=== PATIENT | male | born 1965 | race Caucasian/White ===

== ENCOUNTER 2019-11-21 12:37 | Outpatient (CLI) | payer BC, SELFPAY | END 2019-11-21 12:38 | disposition home or self-care (01) | LOC: CHSCARD 12:42 | PROVIDERS: PCP Internal Medicine; Visit Provider Internal Medicine Pulmonary Disease | DX: J44.9 Chronic obstructive pulmonary disease, unspecified (principal) | CPT/HCPCS: 94060; 94726; 94729; 95012 ==

== ENCOUNTER 2019-12-23 08:34 | Outpatient (CLI) | payer BC, SELFPAY ==
[2019-12-23 08:59] LABS: Add Urine Microscopic? NO; Appearance Urine Clear (Clear); Bilirubin Urine Negative (Negative); Blood Urine Negative (Negative); Color Urine Yellow (Yellow); Glucose Urine UA Negative (Negative); Ketones Urine Negative (Negative); Leukocyte Esterase Ur Negative LEU/UL (Negative); Nitrate Urine Negative (Negative); Protein Urine Negative (Negative); Specific Grav Ur 1.025 (1.010-1.020); Urobilinogen Urine 0.2 mg/dL (0.2-1.0); pH Urine 5.5 (5.0-8.0)
[2019-12-23 09:04] LABS: Hemoglobin A1C 5.7 % (<5.7)
[2019-12-23 09:22] LABS: Creatinine Urine 123.44 mg/dL (40-278)
[2019-12-23 09:30] LABS: Microalbumin Urine Random 12.4 mg/L
[2019-12-23 09:52] LABS: Alanine Aminotransferase 24 U/L (16-63); Albumin Level 3.8 g/dL (3.4-5.0); Alkaline Phosphatase 81 U/L (46-116); Anion Gap 10.6 mmol/L (7-16); Aspartate Amino Transferase 20 U/L (15-37); Bilirubin,Total 0.8 mg/dL (0.00-1.00); Blood Urea Nitrogen 21 mg/dL (7-18); Calcium 9.3 mg/dL (8.5-10.1); Carbon Dioxide 28 mmol/L (21-32); Chloride 105 mmol/L (98-108); Cholesterol 136 mg/dL (0-200); Creatine Kinase 95 U/L (39-308); Estimated Glomerular Filt Rate > 60; Glucose 88 mg/dL (70-99); HDL Direct 65 mg/dL (40-60); LDL Cholesterol Calculated 59 mg/dL (<130); Osmolality Calculated 290 mOsm/kg (285-295); Potassium 4.6 mmol/L (3.5-5.1); Sodium 139 mmol/L (136-145); Total Protein 7.4 g/dL (6.4-8.2); Triglycerides 59 mg/dL (0-150)
== END 2019-12-23 08:35 | disposition home or self-care (01) ==
LOC: CHSLAB 08:37
PROVIDERS: PCP Internal Medicine; Visit Provider Internal Medicine
DX: R73.01 Impaired fasting glucose (principal); I10 Essential (primary) hypertension
CPT/HCPCS: 36415; 80053; 80061; 81003; 82043; 82550; 83036

== ENCOUNTER 2020-01-09 07:09 | Outpatient (CLI) | payer BC, SELFPAY ==
--- NOTE | ~2020-01-09 | CT_ITS ---
EXAMINATION: CT abdomen pelvis w con INDICATION: Right-sided abdominal pain, change in bowel habits TECHNIQUE: Computed tomographic images of the abdomen and pelvis were obtained after the administrati on of 100 cc of Omnipaque 350 intravenous contrast. The dose-length product (DLP) was 1439.51 mGy-cm. Automated exposure control and iterative reconstruction technique were employed. COMPARISON: 11/17/2017 the liver, spleen, pancreas, and adrenal glands are normal. FINDINGS: There is mild emphysema of the visualized lung bases. A 4 mm nodule is present in the left lower lobe. The heart size is normal. There are changes of gastric sleeve surgery. There are multiple stones in the gallbladder which appears mildly distended. There also appears to be a 2 mm stone in t he distal common bile duct. No definite intrahepatic or extrahepatic biliary dilatation is seen. Ther e is a 1.6 cm hyperdense mass of the left kidney upper pole. There is a 10 mm hyperdense mass of the right kidney upper pole. No pathologically enlarged abdominal or pelvic lymph nodes are identified. T here is no free intraperitoneal gas or evidence of bowel obstruction. The appendix is normal. Colonic diverticulosis is present without evidence of diverticulitis. There is severe lower lumbar spondylos is. IMPRESSION: 1. Cholelithiasis with mild gallbladder distention and possible stone of the distal common bile duct. Although no biliary dilatation is seen, MRCP could be considered. If there are symptoms referable to the right upper quadrant, consider nuclear hepatobiliary scan to evaluate for acute cholecystitis. 2. Indeterminate lesions of the kidneys. Findings could represent hemorrhagic or proteinaceous cysts. These can be simultaneously evaluated by sequences performed for MRCP. The above findings were discu ssed with Dr. Tre Reinoso MD on 01/09/2020 09:37 CDT. 3. Mild emphysema of the visualized lung bases with a 4 mm nodule of the left lower lobe. Consider fo llow-up CT in 12 months. Reviewed, dictated and finalized at location B. IMPRESSION: 1. Cholelithiasis with mild gallbladder distention and possible stone of the di stal common bile duct. Although no biliary dilatation is seen, MRCP could be co nsidered. If there are symptoms referable to the right upper quadrant, consider nuclear hepatobiliary scan to evaluate for acute cholecystitis. 2. Indeterminate lesions of the kidneys. Findings could represent hemorrhagic o r proteinaceous cysts. These can be simultaneously evaluated by sequences perfo rmed for MRCP. The above findings were discussed with Dr. Tre Reinoso MD on 01/09/2020 09:37 CDT. 3. Mild emphysema of the visualized lung bases with a 4 mm nodule of the left l ower lobe. Consider follow-up CT in 12 months.
== END 2020-01-09 07:10 | disposition home or self-care (01) ==
PROVIDERS: PCP Internal Medicine; Visit Provider Internal Medicine
DX: R19.4 Change in bowel habit (principal); R10.9 Unspecified abdominal pain
CPT/HCPCS: 74177; Q9965

== ENCOUNTER 2020-01-24 06:38 | Outpatient (CLI) | payer BC, SELFPAY ==
--- NOTE | ~2020-01-24 | MR_ITS ---
EXAMINATION: MR MRCP wo/w con/w 3D wo ind DATE: 01/24/2020 08:04 INDICATION: Disease of the gallbladder. Kidney mass. TECHNIQUE: Magnetic resonance imaging (MRI) of the abdomen was performed without and with 20 mL Multi Migue intravenous contrast. Sequences included coronal T2-weighted FS FSE, coronal T2-weighted FSE, a xial T1-weighted LAVA, coronal FS FIESTA, axial dual-echo T1-weighted SPGR, coronal lava-FLEX, sagitt al T2-weighted FSE, axial T2-weighted FSE, and axial DWI. Thick-slab T2-weighted FSE images were obta ined for magnetic resonance cholangiopancreatography (MRCP). Maximum intensity projection 3-D reconst ructions of the volumetric data were created by the technologist. Postcontrast sequences included cor onal LAVA-flex and time course of axial T1-weighted LAVA. COMPARISON: CT abdomen and pelvis 01/09/2020 FINDINGS: ABDOMEN MRI: The liver and spleen are normal. There are gallstones in the gallbladder, which is trevor l in size. The pancreas and adrenal glands are normal. There are cysts in the kidneys measuring up to 1.8 cm on the right. There is a 10 mm hemorrhagic cyst in right kidney. There is a 1.6 cm enhancing mass in left kidney upper pole directed posterolaterally. There are no dilated loops of bowel. There are no pathologically enlarged lymph nodes. There is no free intraperitoneal fluid. ABDOMEN MRCP: The common duct is normal and measures 6 mm. No choledocholithiasis. IMPRESSION: 1. 1.6 cm enhancing left kidney mass, consistent with renal cell carcinoma. 2. Cholelithiasis. Reviewed, dictated and finalized at location A.
[2020-01-24 07:05] LABS: Estimated Glomerular Filt Rate 58
== END 2020-01-24 06:39 | disposition home or self-care (01) ==
PROVIDERS: PCP Internal Medicine; Visit Provider Internal Medicine
DX: K82.9 Disease of gallbladder, unspecified (principal); K80.20 Calculus of gallbladder without cholecystitis without obstruction
CPT/HCPCS: 36415; 74183; 76376; A9577

== ENCOUNTER 2020-03-19 08:15 | Outpatient (CLI) | payer BC, SELFPAY ==
--- NOTE | 2020-03-19 09:00 | EST_ITS ---
Patient Info Name: Huber Rollins Age: 54 years : 1965 Gender: Male Ht: 76 in Wt: 276 lbs BSA: 2.62 m2 HR: 61 bpm BP: 140 / 75 mmHg Technical Quality: Good Exam Date: 03/19/2020 8:38 AM Exam Location: [facility] Patient Status: Outpatient Admit Date: 03/19/2020 Staff Ordering Physician: Tre Reinoso MD Attending Provider: Tre Reinoso MD Exercise Technologist: Ana Rubin CRT Exercise Physician: Lupe Lee CEP Exam Type: CA stress test treadmill Study Info Indications AbnormalEKG - ChestPain - An exercise stress test was performed. History/Risk Factors Hypertension: Yes Tobacco Use: Current - Every Day History/Risk Factors Hypertension. Smoker. Summary 1. 1. Negative Yoshi exercise stress test for ischemic ST changes by ECG criteria. 2. 2. Good functional capacity, achieving 9 METs of workload. 3. 3. Hypertensive response to exercise. 4. 4. Appropriate HR response to exercise. 5. 5. Appropriate HR recovery at 1 minute post exercise. 6. 6. No imaging with stress testing. Protocol: Yoshi Stress ECG Details Stage: REST Duration (min): 1 min : 43 sec Speed (mph): 0.0 Grade (%): 0 HR (bpm): 61 SBP (mmHg): 140 DBP (mmHg): 75 METS: --- Stage: REST Duration (min): 11 min : 14 sec Speed (mph): 0.0 Grade (%): 0 HR (bpm): 72 SBP (mmHg): 140 DBP (mmHg): 75 METS: --- Stage: STAGE 1 Duration (min): 1 min : 0 sec Speed (mph): 1.7 Grade (%): 10 HR (bpm): 93 SBP (mmHg): 140 DBP (mmHg): 75 METS: --- Stage: STAGE 1 Duration (min): 2 min : 0 sec Speed (mph): 1.7 Grade (%): 10 HR (bpm): 106 SBP (mmHg): 140 DBP (mmHg): 75 METS: --- Stage: STAGE 1 Duration (min): 3 min : 0 sec Speed (mph): 1.7 Grade (%): 10 HR (bpm): 106 SBP (mmHg): 186 DBP (mmHg): 59 METS: --- Stage: STAGE 2 Duration (min): 1 min : 0 sec Speed (mph): 2.5 Grade (%): 12 HR (bpm): 123 SBP (mmHg): 186 DBP (mmHg): 59 METS: --- Stage: STAGE 2 Duration (min): 2 min : 0 sec Speed (mph): 2.5 Grade (%): 12 HR (bpm): 130 SBP (mmHg): 186 DBP (mmHg): 59 METS: --- Stage: STAGE 2 Duration (min): 3 min : 0 sec Speed (mph): 2.5 Grade (%): 12 HR (bpm): 136 SBP (mmHg): 210 DBP (mmHg): 72 METS: --- Stage: STAGE 3 Duration (min): 1 min : 0 sec Speed (mph): 3.4 Grade (%): 14 HR (bpm): 147 SBP (mmHg): 210 DBP (mmHg): 72 METS: --- Stage: STAGE 3 Duration (min): 2 min : 0 sec Speed (mph): 3.4 Grade (%): 14 HR (bpm): 151 SBP (mmHg): 210 DBP (mmHg): 72 METS: --- Stage: STAGE 3 Duration (min): 2 min : 0 sec Speed (mph): 3.4 Grade (%): 14 HR (bpm): 151 SBP (mmHg): 210 DBP (mmHg): 72 METS: --- Stage: RECOVERY Duration (min): 0 min : 59 sec Speed (m
== END 2020-03-19 08:16 | disposition home or self-care (01) ==
LOC: CHSCARD 08:17
PROVIDERS: PCP Internal Medicine; Visit Provider Internal Medicine
DX: R07.9 Chest pain, unspecified (principal)
CPT/HCPCS: 93017

== ENCOUNTER 2020-05-26 01:02 | Outpatient (CLI) | payer BC, SELFPAY ==
[2020-05-26 18:11] LABS: SARS-CoV-2 RNA PCR Negative
== END 2020-05-26 01:03 | disposition home or self-care (01) ==
LOC: ANHCOVIDDT 01:02
PROVIDERS: PCP Internal Medicine; Visit Provider Surgery
DX: Z01.812 Encounter for preprocedural laboratory examination (principal); Z11.59 Encounter for screening for other viral diseases
CPT/HCPCS: 87635; C9803; U0003

== ENCOUNTER 2020-05-29 01:54 | Day surgery (SDC) | payer BC, SELFPAY ==
[2020-05-23 13:40] VITALS: BMI 31.1
[2020-05-29 09:47] VITALS: BP 120/66; PULSE 52; RESP 16; TEMP 36.4; O2SAT 99
[2020-05-29] MEDS: LACTATED RINGERS 1,000 ML 150 ML IV CONT (10:02)
--- NOTE | 2020-05-29 10:18 | WPDANESEPPF ---
Anes - Initial Pre Proc Eval Procedure: Operation Date: 05/29/20 12:00 Proposed Procedures p Colonoscopy - Kiet Soni DO Date/Time: 05/29/20 10:18 Surgeon: Kiet Soni DO Pre Op Diagnosis: Change In Bowel Habits Patient Data Age: 55 Gender: M Height: 6 ft 4 in Weight: 116 kg Last Vital Signs Temp 97.5 F L 05/29/20 09:47 Pulse 52 L 05/29/20 09:47 Resp 16 05/29/20 09:47 BP 120/66 05/29/20 09:47 Pulse Ox 99 05/29/20 09:47 Allergies Allergy/AdvReac Type Severity Reaction Status Date / Time No Known Allergies Allergy Verified 05/23/20 13:22 Home Medications Medication Instructions Recorded Confirmed Type acetaminophen 500 mg PO Q4-6H PRN 05/23/20 05/23/20 History budesonide-formoterol [Symbicort] 2 puff INHALATION Q12H 05/23/20 05/23/20 History hydrochlorothiazide 12.5 mg PO DAILY 05/23/20 05/23/20 History ipratropium-albuterol [Combivent 1 puff INHALATION QID 05/23/20 05/23/20 History Respimat] losartan 100 mg PO DAILY 05/23/20 05/29/20 History sildenafil PO DIRECTED PRN 05/23/20 History spironolactone 50 mg PO DAILY 05/23/20 05/23/20 History tamsulosin 0.4 mg PO DAILY 05/23/20 05/23/20 History varenicline [Chantix] 1 mg PO BID 05/23/20 05/23/20 History Patient hx anesthesia problems: none Family hx anesthesia problems: none [facility] Past Medical History Medical History (Updated 05/29/20 @ 10:18 by Rene Christianson MD) Bradycardia COPD (chronic obstructive pulmonary disease) Hypertension Social History Social History (Updated 05/29/20 @ 10:19 by Rene Christianson MD) Smoking packs per day: 1 Smoking cigarettes per day: 20.0 Years smoked: 30 Smoking pack-years: 30.00 Smoking status: Current every day smoker Tobacco type: cigarettes Anes - Eval Final PreProcedure Day of Procedure 05/29/20 10:18 Patient weight: normal Heart: regular rate and rhythm Lungs: clear to auscultation Airway: Mallampati scale class II Neurological: alert and oriented Last oral intake: >/= 8 hours ASA classification: III Emergent: no Anesthetic plan: proceed Anesthesia type and monitoring: general GIVS and standard monitoring Informed Consent: The patient's anesthetic plan and its attendant risks and benefits were discussed with the patient/family/POA. Questions were solicited and answers provided to the satisfaction of the patient/family/POA.
--- NOTE | 2020-05-29 10:20 | PM.IMHP ---
H&P: HPI History of Present Illness Date/Time: 05/29/20 10:20 Chief complaint: Change In Bowel Habits Narrative: Huber Rollins is a 55 year old male who presents for 1st colonosocpy. Denies fam hx colon cancer. No hematochezia or melena. Review of Systems Review of Systems: All systems reviewed & are unremarkable except as noted in HPI and below Constitutional: Constitutional: Denies chills, Denies fever(s), Denies headache(s) and Denies weight loss Eyes: Eyes: Denies change in vision ENT: Denies dizziness, Denies headache(s), Denies neck mass and Denies throat swelling Cardiovascular: Cardiovascular: Denies chest pain, Denies lightheadedness and Denies dyspnea Respiratory: Respiratory: Denies cough, Denies dyspnea and Denies wheezing Gastrointestinal: Gastrointestinal: Denies abdominal pain, Denies change in bowel habits, Denies nausea and Denies vomiting Genitourinary: Genitourinary: Denies hematuria and Denies dysuria Musculoskeletal: Musculoskeletal: Reports as per HPI Integumentary/Breasts: Skin/Breast: Reports as per HPI Neurologic: Denies dizziness and Denies headache(s) Allergic/Immunologic: Allergic/Immunologic: Denies throat swelling and Denies wheezing PMFSH Past Medical History Medical History Bradycardia COPD (chronic obstructive pulmonary disease) Hypertension Social History Social History Smoking packs per day: 1 Smoking cigarettes per day: 20.0 Years smoked: 30 Smoking pack-years: 30.00 Smoking status: Current every day smoker Tobacco type: cigarettes Meds Home Medications and Allergies Home Medications Medication Instructions Recorded Confirmed Type acetaminophen 500 mg PO Q4-6H PRN 05/23/20 05/23/20 History budesonide-formoterol [Symbicort] 2 puff INHALATION Q12H 05/23/20 05/23/20 History hydrochlorothiazide 12.5 mg PO DAILY 05/23/20 05/23/20 History ipratropium-albuterol [Combivent 1 puff INHALATION QID 05/23/20 05/23/20 History Respimat] losartan 100 mg PO DAILY 05/23/20 05/29/20 History sildenafil PO DIRECTED PRN 05/23/20 History spironolactone 50 mg PO DAILY 05/23/20 05/23/20 History tamsulosin 0.4 mg PO DAILY 05/23/20 05/23/20 History varenicline [Chantix] 1 mg PO BID 05/23/20 05/23/20 History Allergies Allergy/AdvReac Type Severity Reaction Status Date / Time No Known Allergies Allergy Verified 05/23/20 13:22 Vital Signs Vital Signs - 24 hr 05/29/20 09:47 Temperature 36.4 C L Pulse Rate 52 L Respiratory Rate 16 Blood Pressure 120/66 Pulse Oximetry 99 Exam Const: General: no acute distress and alert Orientation/consciousness: patient oriented x3 HENMT: Head: normocephalic and atraumatic Ears: hearing grossly normal bilaterally General nose exam: Normal nares present Mouth: Yes Normal oral and palatal mucosa present Eyes: Periorbital: periorbital findings normal Sclera: sclerae normal EOM: EOMs intact bilaterally Neck: Neck: normal visual inspection, no lymphadenopathy and trachea midline Chest: Chest palpation & inspection: normal inspection of the chest Resp: Effort & Inspection: normal respiratory effort Auscultation: clear to auscultation bilaterally Cardio: Jugular venous distension: no JVD Rate: regular rate Rhythm: regular rhythm Heart sounds: S1 normal heart sound present and S2 normal heart sound present Peripheral pulses: Peripheral pulses 2+ throughout GI: Inspection: normal to inspection GI Palp: Yes Soft to palpation, No Tenderness to palpation present (GI), No Guarding due to palpation present (GI) and No Rebound tenderness present Percussion: Yes normal to percussion Auscultation: normal bowel sounds : General: Yes no CVA tenderness Back/Spine/Pelvis: Back: no CVA tenderness Neuro: General: patient oriented x3, no focal motor deficits and CN's II-XI intact bilaterally Cognition (Ne
[2020-05-29 10:43] VITALS: BP 98/56; PULSE 49; RESP 18; O2SAT 98
[2020-05-29 10:53] VITALS: BP 98/53; PULSE 50; RESP 19; O2SAT 99
[2020-05-29 11:03] VITALS: BP 109/66; PULSE 53; RESP 18; O2SAT 100
[2020-05-29 11:13] VITALS: BP 110/68; PULSE 52; RESP 20; O2SAT 99
== END 2020-05-29 11:20 | disposition home or self-care (01) ==
PROVIDERS: PCP Internal Medicine; Visit Provider Surgery
PROC: 0DJD8ZZ Inspection of Lower Intestinal Tract, Via Natural or Artificial Opening Endoscopic (ICD-10-PCS; CPT 45378; principal; 2020-05-29 12:00)
DX: Z12.11 Encounter for screening for malignant neoplasm of colon (principal); K63.5 Polyp of colon; I10 Essential (primary) hypertension; J44.9 Chronic obstructive pulmonary disease, unspecified; R00.1 Bradycardia, unspecified; F17.210 Nicotine dependence, cigarettes, uncomplicated
CPT/HCPCS: 45380; 88305; J2704; J7120

== ENCOUNTER 2020-06-20 13:25 | Outpatient (CLI) | payer BC, SELFPAY | END 2020-06-20 13:26 | disposition home or self-care (01) | LOC: CHSCARD 13:26 | PROVIDERS: PCP Internal Medicine; Visit Provider Internal Medicine Pulmonary Disease | DX: J44.9 Chronic obstructive pulmonary disease, unspecified (principal) | CPT/HCPCS: 94060; 94726; 94729 ==

== ENCOUNTER 2020-07-14 08:07 | Outpatient (CLI) | payer BC, SELFPAY ==
[2020-07-14 08:21] LABS: Basophils Absolute Auto 0.04 K/mm3 (0.00-0.10); Basophils Percent Auto 0.4 % (0.0-1.0); Eosinophils Absolute Auto 0.08 K/mm3 (0.02-0.50); Eosinophils Percent Auto 0.9 % (1.0-6.0); Hematocrit 43.2 % (40.0-54.0); Hemoglobin 14.7 g/dL (14.0-18.0); Immature Granulocyte Absolute 0.04 K/mm3 (0.00-0.00); Immature Granulocyte Percent A 0.4 % (0.0-0.0); Lymphocytes Absolute Auto 2.47 K/mm3 (1.10-4.50); Lymphocytes Percent Auto 26.4 % (18.0-42.0); Mean Corpuscular Volume 91.1 fL (78.0-102.0); Mean Platelet Volume 9.2 fl (8.7-11.0); Monocytes Absolute Auto 0.74 K/mm3 (0.10-0.90); Monocytes Percent Auto 7.9 % (2.0-11.0); Platelet Count Result 256 K/mm3 (150-420); Red Blood Count 4.74 M/mm3 (4.70-6.10); Red Cell Distribution Width 13.2 % (11.6-14.4); White Blood Count 9.4 K/mm3 (4.8-10.8)
[2020-07-14 08:59] LABS: MALB Creatinine Ratio 10.1 mg/g (0-30); Microalbumin Urine Random < 13.0 mg/L
[2020-07-14 09:47] LABS: Add Urine Microscopic? NO; Appearance Urine Clear (Clear); Bilirubin Urine Negative (Negative); Blood Urine Negative (Negative); Color Urine Yellow (Yellow); Glucose Urine UA Negative (Negative); Ketones Urine Negative (Negative); Leukocyte Esterase Ur Negative LEU/UL (Negative); Nitrate Urine Negative (Negative); Protein Urine Negative (Negative); Specific Grav Ur 1.025 (1.010-1.020); Urobilinogen Urine 0.2 mg/dL (0.2-1.0)
[2020-07-14 10:03] LABS: Hemoglobin A1C 5.3 % (<5.7)
[2020-07-14 10:29] LABS: Alanine Aminotransferase 26 U/L (16-63); Alkaline Phosphatase 80 U/L (46-116); Anion Gap 12 mmol/L (8-16); Aspartate Amino Transferase 19 U/L (15-37); Bilirubin,Total 0.7 mg/dL (0.00-1.00); Blood Urea Nitrogen 28 mg/dL (7-18); Calcium 9.5 mg/dL (8.5-10.1); Carbon Dioxide 25 mmol/L (21-32); Chloride 103 mmol/L (98-108); Cholesterol 137 mg/dL (0-200); Estimated Glomerular Filt Rate > 60; Glucose 100 mg/dL (70-99); HDL Direct 63 mg/dL (40-60); LDL Cholesterol Calculated 60 mg/dL (<130); Osmolality Calculated 295 mOsm/kg (285-295); Sodium 140 mmol/L (136-145); Total Protein 7.3 g/dL (6.4-8.2); Triglycerides 69 mg/dL (0-150)
== END 2020-07-14 08:08 | disposition home or self-care (01) ==
LOC: CHSLAB 08:09
PROVIDERS: PCP Internal Medicine; Visit Provider Internal Medicine
DX: R73.01 Impaired fasting glucose (principal); I10 Essential (primary) hypertension
CPT/HCPCS: 36415; 80053; 80061; 81003; 82043; 83036; 85025

== ENCOUNTER 2020-11-14 17:30 | Outpatient (CLI) | payer BC, SELFPAY ==
--- NOTE | ~2020-11-14 | XR_ITS ---
XR chest 2V DATE: 11/14/2020 18:12 INDICATION: Midsternal chest pain, shortness of breath TECHNIQUE: PA and lateral views COMPARISON: 11/12/2017 PA and lateral chest FINDINGS: Normal heart size. No hilar or mediastinal enlargement. Bilateral hyperinflation. No pul monary infiltrate or consolidation, pulmonary vascular congestion or pleural effusion or pneumothorax . Mild dextroscoliosis and degenerative change of the thoracic spine. IMPRESSION: No active cardiopulmonary disease Reviewed, dictated and finalized at location A. S DISASSEMBLER
[2020-11-14 18:05] LABS: Basophils Absolute Auto 0.03 K/mm3 (0.00-0.10); Basophils Percent Auto 0.3 % (0.0-1.0); Eosinophils Absolute Auto 0.13 K/mm3 (0.02-0.50); Eosinophils Percent Auto 1.3 % (1.0-6.0); Hematocrit 46.2 % (40.0-54.0); Hemoglobin 15.1 g/dL (14.0-18.0); Immature Granulocyte Absolute 0.03 K/mm3 (0.00-0.00); Immature Granulocyte Percent A 0.3 % (0.0-0.0); Lymphocytes Absolute Auto 2.07 K/mm3 (1.10-4.50); Lymphocytes Percent Auto 21.4 % (18.0-42.0); Mean Corpuscular HGB Conc 32.7 g/dL (32.0-36.0); Mean Corpuscular Hemoglobin 30.6 pg (27.0-31.0); Mean Corpuscular Volume 93.5 fL (78.0-102.0); Mean Platelet Volume 8.9 fl (8.7-11.0); Monocytes Absolute Auto 0.71 K/mm3 (0.10-0.90); Monocytes Percent Auto 7.3 % (2.0-11.0); Neutrophils Absolute Auto 6.7 K/mm3 (1.7-7.2); Neutrophils Percent Auto 69.4 % (50.0-70.0); Platelet Count Result 285 K/mm3 (150-420); Red Blood Count 4.94 M/mm3 (4.70-6.10); White Blood Count 9.7 K/mm3 (4.8-10.8)
--- NOTE | 2020-11-14 18:05 | ECG_ITS ---
Measurements Intervals [place] Rate: 60 P: 63 MD: 175 QRS: 76 QRSD: 108 T: 73 QT: 371 QTc: 372 Interpretive Statements SINUS RHYTHM DELAYED PRECORDIAL R/S TRANSITION PEAKED T WAVES- CONSIDER HYPERKALEMIA OR ISCHEMIA ABNORMAL ECG Electronically Signed On 11-14-2020 18:25:26 DRY HOUSE TENDER by Bal Dean D.O.
[2020-11-14 18:22] LABS: D Dimer 0.22 mg/L (0.19-0.50)
[2020-11-14 18:32] LABS: Alanine Aminotransferase 27 U/L (16-63); Alkaline Phosphatase 77 U/L (46-116); Anion Gap 5 mmol/L (8-16); Aspartate Amino Transferase 22 U/L (15-37); Bilirubin,Total 0.4 mg/dL (0.00-1.00); Blood Urea Nitrogen 33 mg/dL (7-18); Calcium 9.4 mg/dL (8.5-10.1); Carbon Dioxide 30 mmol/L (21-32); Chloride 99 mmol/L (98-108); Creatine Kinase 211 U/L (39-308); Estimated Glomerular Filt Rate 51; Glucose 100 mg/dL (70-99); Osmolality Calculated 285 mOsm/kg (285-295); Potassium 4.7 mmol/L (3.5-5.1); Sodium 134 mmol/L (136-145); Total Protein 7.9 g/dL (6.4-8.2); Troponin I 8.6 ng/L (0.00-60.4)
[2020-11-14 18:37] LABS: SARS-CoV-2 Ag Negative (Negative)
[2020-11-14 18:42] LABS: BNP < 5.0 pg/mL (0-100)
[2020-11-16 19:17] LABS: SARS-CoV-2 RNA PCR Negative
== END 2020-11-14 17:31 | disposition home or self-care (01) ==
LOC: CHSLAB 17:32
PROVIDERS: PCP Internal Medicine; Visit Provider Internal Medicine
DX: R06.00 Dyspnea, unspecified (principal); R07.89 Other chest pain; Z20.822 Contact with and (suspected) exposure to COVID-19
CPT/HCPCS: 36415; 71046; 80053; 82550; 82553; 83880; 84484; 85025; 85380; 87426; 93005; C9803; U0003; U0005

== ENCOUNTER 2020-11-29 08:09 | Outpatient (CLI) | payer BC, SELFPAY ==
--- NOTE | 2020-12-19 12:15 | WPDHOLTEREM ---
Holter/Event Monitor Holter/Event Monitor Date of procedure: 11/29/20 Procedure Type: event monitor Indications: Palpitations Conclusion: 1. 16 days event monitor between 11/29/20-12/19/20. There are 26 available transmissions for analysis. 2. Underlying rhythm is sinus rhythm. HR range 50-155 bpm; average HR 72 bpm. 3. There are occasional premature supraventricular complexes with total burden of 1%. No supraventricular tachycardia. 4. There are occasionall premature ventricular complexes with total burden of 1%. No ventricular tachycardia. 5. No significant pauses greater than 2 seconds. 6. Patient reports 8 episodes of symptoms of chest pain, shortness of breath, dizziness, lightheadedness, and symptoms other than listed which demonstrate sinus rhythm, HR range 59-150 bpm.
== END 2020-11-29 08:10 | disposition home or self-care (01) ==
LOC: CHSCARD 08:12
PROVIDERS: PCP Internal Medicine; Visit Provider Internal Medicine
DX: R00.2 Palpitations (principal)
CPT/HCPCS: 99199

== ENCOUNTER 2021-08-03 09:35 | Outpatient (CLI) | payer BC, SELFPAY ==
[2021-08-03 11:51] LABS: Anion Gap 8 mmol/L (8-16); Blood Urea Nitrogen 28 mg/dL (7-18); Calcium 9.4 mg/dL (8.5-10.1); Carbon Dioxide 29 mmol/L (21-32); Chloride 102 mmol/L (98-108); Estimated Glomerular Filt Rate 54; Glucose 92 mg/dL (70-99); Osmolality Calculated 293 mOsm/kg (285-295); Potassium 4.7 mmol/L (3.5-5.1); Sodium 139 mmol/L (136-145)
== END 2021-08-03 09:36 | disposition home or self-care (01) ==
LOC: CHSLAB 09:39
PROVIDERS: PCP Internal Medicine; Visit Provider Internal Medicine
DX: E86.0 Dehydration (principal)
CPT/HCPCS: 36415; 80048

== ENCOUNTER 2021-10-03 16:41 | Outpatient (CLI) | payer BC, SELFPAY ==
[2021-10-03 17:30] LABS: Basophils Absolute Auto 0.04 K/mm3 (0.00-0.10); Basophils Percent Auto 0.6 % (0.0-1.0); Eosinophils Absolute Auto 0.15 K/mm3 (0.02-0.50); Eosinophils Percent Auto 2.1 % (1.0-6.0); Hematocrit 41.6 % (40.0-54.0); Immature Granulocyte Absolute 0.02 K/mm3 (0.00-0.00); Immature Granulocyte Percent A 0.3 % (0.0-0.0); Mean Corpuscular HGB Conc 33.7 g/dL (32.0-36.0); Mean Platelet Volume 9.3 fl (8.7-11.0); Monocytes Absolute Auto 0.71 K/mm3 (0.10-0.90); Monocytes Percent Auto 10.2 % (2.0-11.0); Neutrophils Percent Auto 56.8 % (50.0-70.0); Platelet Count Result 286 K/mm3 (150-420); Red Blood Count 4.52 M/mm3 (4.70-6.10); Red Cell Distribution Width 13.3 % (11.6-14.4)
[2021-10-03 17:31] LABS: Add Urine Microscopic? NO; Appearance Urine Clear (Clear); Bilirubin Urine Negative (Negative); Blood Urine Negative (Negative); Color Urine Light Yellow (Yellow); Glucose Urine UA Negative (Negative); Ketones Urine Negative (Negative); Leukocyte Esterase Ur Negative LEU/UL (Negative); Nitrate Urine Negative (Negative); Protein Urine Negative (Negative); Urobilinogen Urine 0.2 mg/dL (0.2-1.0)
[2021-10-03 17:45] LABS: Hemoglobin A1C 5.3 % (<5.7)
[2021-10-03 18:01] LABS: Alanine Aminotransferase 31 U/L (16-63); Albumin Level 3.8 g/dL (3.4-5.0); Alkaline Phosphatase 83 U/L (46-116); Anion Gap 8 mmol/L (8-16); Aspartate Amino Transferase 26 U/L (15-37); Bilirubin,Total 0.5 mg/dL (0.00-1.00); Blood Urea Nitrogen 30 mg/dL (7-18); Calcium 9.3 mg/dL (8.5-10.1); Carbon Dioxide 31 mmol/L (21-32); Chloride 103 mmol/L (98-108); Cholesterol 142 mg/dL (0-200); Estimated Glomerular Filt Rate > 60; Ferritin 48 ng/mL (26-388); Free T3 2.78 pg/mL (2.18-3.98); Free T4 Free Thyroxine 1.08 ng/dL (0.76-1.46); Glucose 59 mg/dL (70-99); HDL Direct 72 mg/dL (40-60); Iron 61 ug/dL (65-175); LDL Cholesterol Calculated 62 mg/dL (<130); Osmolality Calculated 298 mOsm/kg (285-295); Potassium 4.7 mmol/L (3.5-5.1); Prostate Specific Antigen 0.6 ng/mL (< OR = 4.0); Sodium 142 mmol/L (136-145); Thyroid Stimulating Hormone 1.46 uIU/mL (0.36-3.74); Total Protein 7.2 g/dL (6.4-8.2); Triglycerides 42 mg/dL (0-150)
[2021-10-07 07:35] LABS: Vitamin D 25 Hydroxy 60 ng/mL (30-100)
[2021-10-08 01:10] LABS: Zinc 49 mcg/dL (60-130)
[2021-10-09 10:30] LABS: Vitamin A 38 mcg/dL (38-98)
== END 2021-10-03 16:42 | disposition home or self-care (01) ==
LOC: CHSLAB 16:43
PROVIDERS: PCP Internal Medicine; Visit Provider Internal Medicine
DX: R73.01 Impaired fasting glucose (principal); I10 Essential (primary) hypertension; Z12.5 Encounter for screening for malignant neoplasm of prostate; Z98.84 Bariatric surgery status; E86.0 Dehydration; N39.0 Urinary tract infection, site not specified
CPT/HCPCS: 36415; 80053; 80061; 81003; 82306; 82728; 83036; 83540; 84153; 84439; 84443; 84481; 84590; 84630; 85025; G0103

== ENCOUNTER 2021-11-01 07:38 | Outpatient (CLI) | payer OTHER, SELFPAY ==
--- NOTE | ~2021-11-01 | CT_ITS ---
EXAMINATION: CT diagnostic chest wo con EXAM DATE: 11/01/2021 08:01 INDICATION: Pulmonary nodule f/u for lung nodules, hx of smoking. TECHNIQUE: Spiral CT of the chest without contrast. Axial, coronal and sagittal images of the chest were reviewed. Coronal maximum intensity pixel images of chest reviewed. The dose-length product ( DLP) for this examination was 226.08 mGy-cm. The exposure was tailored according to patient size (au to mA exposure control), and iterative reconstruction (ASIR) was used as additional dose reduction te chnique. Comparison is made to prior examination from 11/17/2017. Correlation was made with CT abdomen pelvis 01/09/2020, which demonstrated the pulmonary nodule being followed up. FINDINGS: There is 4 mm left lower lobe nodule identified on image 79, unchanged, consistent with no ncalcified granuloma. There is right upper lobe spiculation without substantial solid component, in l ocation of previously seen pneumonia on prior CT 2017. This is most likely postinfectious but additio nal follow-up is recommended. There is mild to moderate emphysema and hyperinflation. There are no pleural or pericardial effusion s. Tracheobronchial tree is patent. There is no mediastinal, hilar or axillary lymphadenopathy. There is no pneumothorax. Heart normal in size. There is mild coronary arterial calcification, a rterial sclerosis. Surgical changes along the greater curvature of the stomach. There are no osteobl astic or osteolytic lesions identified. There is thoracic spondylosis without osteoblastic or osteo lytic lesions identified. IMPRESSION: 1. Right apical spiculation probably postinfectious; six-month follow-up chest CT without contrast r ecommended. 2. Left lower lobe granuloma. 3. Mild to moderate emphysema and hyperinflation. Reviewed, dictated and finalized at location A. ENTER SUPERVISOR WOODEN SHIP IMPRESSION: 1. Right apical spiculation probably postinfectious; six-month follow-up chest CT without contrast recommended. 2. Left lower lobe granuloma. 3. Mild to moderate emphysema and hyperinflation.
== END 2021-11-01 07:39 | disposition home or self-care (01) ==
LOC: CHSIMG 07:41
PROVIDERS: PCP Internal Medicine; Visit Provider Internal Medicine
DX: R91.1 Solitary pulmonary nodule (principal)
CPT/HCPCS: 71250

== ENCOUNTER 2022-01-31 15:42 | Outpatient (CLI) | payer OTHER, SELFPAY ==
[2022-01-31 16:02] LABS: Basophils Absolute Auto 0.05 K/mm3 (0.00-0.10); Basophils Percent Auto 0.7 % (0.0-1.0); Eosinophils Absolute Auto 0.16 K/mm3 (0.02-0.50); Eosinophils Percent Auto 2.2 % (1.0-6.0); Hematocrit 42.7 % (40.0-54.0); Hemoglobin 14.2 g/dL (14.0-18.0); Immature Granulocyte Absolute 0.01 K/mm3 (0.00-0.00); Immature Granulocyte Percent A 0.1 % (0.0-0.0); Lymphocytes Absolute Auto 1.94 K/mm3 (1.10-4.50); Lymphocytes Percent Auto 27.1 % (18.0-42.0); Mean Corpuscular HGB Conc 33.3 g/dL (32.0-36.0); Mean Corpuscular Hemoglobin 31.1 pg (27.0-31.0); Mean Corpuscular Volume 93.6 fL (78.0-102.0); Mean Platelet Volume 8.9 fl (8.7-11.0); Monocytes Absolute Auto 0.61 K/mm3 (0.10-0.90); Monocytes Percent Auto 8.5 % (2.0-11.0); Neutrophils Absolute Auto 4.4 K/mm3 (1.7-7.2); Neutrophils Percent Auto 61.4 % (50.0-70.0); Platelet Count Result 218 K/mm3 (150-420); Red Blood Count 4.56 M/mm3 (4.70-6.10); Red Cell Distribution Width 13.1 % (11.6-14.4); White Blood Count 7.2 K/mm3 (4.8-10.8)
[2022-01-31 16:03] LABS: Add Urine Microscopic? NO; Appearance Urine Clear (Clear); Bilirubin Urine Negative (Negative); Blood Urine Negative (Negative); Color Urine Light Yellow (Yellow); Glucose Urine UA Negative (Negative); Ketones Urine Negative (Negative); Leukocyte Esterase Ur Negative (Negative); Nitrate Urine Negative (Negative); Protein Urine Negative (Negative); Urobilinogen Urine 0.2 mg/dL (0.2-1.0)
[2022-01-31 16:58] LABS: Alanine Aminotransferase 34 U/L (16-63); Albumin Level 3.7 g/dL (3.4-5.0); Alkaline Phosphatase 81 U/L (46-116); Anion Gap 7 mmol/L (8-16); Aspartate Amino Transferase 34 U/L (15-37); Bilirubin,Total 0.6 mg/dL (0.00-1.00); Blood Urea Nitrogen 24 mg/dL (7-18); Calcium 9.2 mg/dL (8.5-10.1); Carbon Dioxide 29 mmol/L (21-32); Chloride 105 mmol/L (98-108); Estimated Glomerular Filt Rate > 60; Ferritin 73 ng/mL (26-388); Free T3 2.81 pg/mL (2.18-3.98); Free T4 Free Thyroxine 1.05 ng/dL (0.76-1.46); Glucose 81 mg/dL (70-99); Iron 103 ug/dL (65-175); Lactate Dehydrogenase 140 U/L (85-227); Osmolality Calculated 295 mOsm/kg (285-295); Potassium 4.1 mmol/L (3.5-5.1); Sodium 141 mmol/L (136-145); Thyroid Stimulating Hormone 1.15 uIU/mL (0.36-3.74); Total Protein 6.8 g/dL (6.4-8.2); Vitamin B12 1053 pg/mL (193-986)
[2022-01-31 17:00] LABS: CRP < 0.2 mg/dL (0.0-0.9)
[2022-01-31 17:05] LABS: Erythrocyte Sedimentation Rate 12 mm/hr (0-20)
== END 2022-01-31 15:43 | disposition home or self-care (01) ==
LOC: CHSLAB 15:44
PROVIDERS: PCP Internal Medicine; Visit Provider Internal Medicine
DX: G62.9 Polyneuropathy, unspecified (principal); R51.9 Headache, unspecified; D64.9 Anemia, unspecified; R61 Generalized hyperhidrosis
CPT/HCPCS: 36415; 80053; 81003; 82607; 82728; 83540; 83615; 84439; 84443; 84481; 85025; 85652; 86038; 86140

== ENCOUNTER 2022-02-08 06:47 | Outpatient (CLI) | payer OTHER, SELFPAY ==
--- NOTE | ~2022-02-08 | MR_ITS ---
EXAMINATION: MR brain/brain stem wo con DATE: 02/08/2022 09:40 INDICATION: Severe headaches. TECHNIQUE: Magnetic resonance imaging (MRI) of the brain and brainstem was performed without intraven ous contrast. Sequences included sagittal and axial T1-weighted SE, axial diffusion-weighted FS EPI A SSET, axial T2*-weighted GRE, axial T2-weighted FLAIR Propeller, and axial T2-weighted Propeller. Pos tcontrast axial and coronal T1-weighted SE was obtained. Apparent diffusion coefficient (ADC) maps we re created. COMPARISON: None. FINDINGS: No abnormal restricted diffusion to suggest acute ischemic infarct. No MRI evidence of hemorrhage or extra-axial collection. No suspicious foci of susceptibility to suggest prior intraparenchymal hemorr deolres. Ventricles do not appear significantly enlarged. No mass or significant mass effect. Flow voids are preserved. Right maxillary retention cyst or polyp. Trace left mastoid fluid, otherwise the aera chandu spaces are clear. Orbits and soft tissues unremarkable. IMPRESSION: 1. Right maxillary retention cyst or polyp. Trace mastoid fluid. Otherwise normal MR brain findings. Reviewed, dictated and finalized at location K. IMPRESSION: 1. Right maxillary retention cyst or polyp. Trace mastoid fluid. Otherwise norm al MR brain findings.
== END 2022-02-08 06:48 | disposition home or self-care (01) ==
PROVIDERS: PCP Internal Medicine; Visit Provider Internal Medicine
DX: R51.9 Headache, unspecified (principal); R20.2 Paresthesia of skin
CPT/HCPCS: 70551

== ENCOUNTER 2022-09-12 07:40 | Outpatient (CLI) | payer OTHER, SELFPAY ==
--- NOTE | ~2022-09-12 | CT_ITS ---
EXAMINATION: CT diagnostic chest wo con DATE: 09/12/2022 08:20 INDICATION: Pulmonary nodule. Cough. Smoker. History of Covid. Right apical spiculation reported on CT chest, with recommendation for six-month CT follow-up TECHNIQUE: Computed tomography (CT) of the chest was performed without intravenous contrast. Automate d exposure control and iterative reconstruction technique were employed. Exam dose: 383.26 mGy-cm to ida exam DLP. COMPARISON: 11/01/2021 CTA chest FINDINGS: Normal heart size. No pericardial or pleural effusion. No thoracic aortic aneurysm or dissection. No hilar or mediastinal mass lesion or lymphadenopathy. Ca lcified right hilar nodes. Moderate emphysematous changes of the lungs. Stable focal posterior periapical pulmonary spiculations since 11/01/2021, in area of previous right u pper lobe infiltrate noted on 11/12/2017, likely post infectious scarring. Stable approximately 4.7 mm left lower lobe pulmonary nodule and 3.9 mm left lower lobe pulmonary nodule since 11/01/2021.. Postoperative change of the stomach. Degenerative changes of the cervical and thoracic spine. No suspicious osteolytic or osteoblastic les ions. IMPRESSION: No significant change since 11/01/2021 Reviewed, dictated and finalized at Location A. Reviewed, dictated and finalized at location B. NEL ACCOUNT MANAGER
[2022-09-12 08:03] LABS: Basophils Absolute Auto 0.03 K/mm3 (0.00-0.10); Basophils Percent Auto 0.7 % (0.0-1.0); Eosinophils Absolute Auto 0.08 K/mm3 (0.02-0.50); Eosinophils Percent Auto 1.9 % (1.0-6.0); Hematocrit 43.8 % (40.0-54.0); Hemoglobin 14.5 g/dL (14.0-18.0); Immature Granulocyte Absolute 0.01 K/mm3 (0.00-0.00); Immature Granulocyte Percent A 0.2 % (0.0-0.0); Lymphocytes Absolute Auto 1.53 K/mm3 (1.10-4.50); Lymphocytes Percent Auto 35.7 % (18.0-42.0); Mean Corpuscular HGB Conc 33.1 g/dL (32.0-36.0); Mean Corpuscular Hemoglobin 30.9 pg (27.0-31.0); Mean Corpuscular Volume 93.4 fL (78.0-102.0); Mean Platelet Volume 8.8 fl (8.7-11.0); Monocytes Absolute Auto 0.44 K/mm3 (0.10-0.90); Monocytes Percent Auto 10.3 % (2.0-11.0); Neutrophils Absolute Auto 2.2 K/mm3 (1.7-7.2); Neutrophils Percent Auto 51.2 % (50.0-70.0); Platelet Count Result 218 K/mm3 (150-420); Red Blood Count 4.69 M/mm3 (4.70-6.10); Red Cell Distribution Width 13.3 % (11.6-14.4); White Blood Count 4.3 K/mm3 (4.8-10.8)
[2022-09-12 08:04] LABS: Appearance Urine Clear (Clear); Bilirubin Urine Negative (Negative); Blood Urine Negative (Negative); Glucose Urine UA Negative (Negative); Ketones Urine Negative (Negative); Leukocyte Esterase Ur Negative LEU/UL (Negative); Nitrate Urine Negative (Negative); Protein Urine Negative (Negative); Urobilinogen Urine 0.2 mg/dL (0.2-1.0); pH Urine 6.5 (5.0-8.0)
[2022-09-12 08:08] LABS: Add Urine Microscopic? NO; Color Urine Light Yellow (Yellow)
[2022-09-12 08:09] LABS: Creatinine Urine 123.71 mg/dL (40-278); MALB Creatinine Ratio 23.7 mg/g (0-30); Microalbumin Urine Random 29.4 mg/L
[2022-09-12 08:11] LABS: Hemoglobin A1C 5.4 % (<5.7)
[2022-09-12 08:34] LABS: Alanine Aminotransferase 29 U/L (16-63); Albumin Level 3.9 g/dL (3.4-5.0); Alkaline Phosphatase 84 U/L (46-116); Anion Gap 7 mmol/L (8-16); Aspartate Amino Transferase 24 U/L (15-37); Bilirubin,Total 0.8 mg/dL (0.00-1.00); Blood Urea Nitrogen 23 mg/dL (7-18); Calcium 8.9 mg/dL (8.5-10.1); Carbon Dioxide 32 mmol/L (21-32); Chloride 103 mmol/L (98-108); Cholesterol 150 mg/dL (0-200); Creatine Kinase 92 U/L (39-308); Estimated Glomerular Filt Rate 59; Ferritin 91 ng/mL (26-388); Free T3 2.98 pg/mL (2.18-3.98); Free T4 Free Thyroxine 1.12 ng/dL (0.76-1.46); Glucose 103 mg/dL (70-99); HDL Direct 76 mg/dL (40-60); Iron 84 ug/dL (65-175); LDL Cholesterol Calculated 66 mg/dL (<130); Osmolality Calculated 297 mOsm/kg (285-295); Potassium 4.6 mmol/L (3.5-5.1); Sodium 142 mmol/L (136-145); Thyroid Stimulating Hormone 1.53 uIU/mL (0.36-3.74); Total Protein 7.2 g/dL (6.4-8.2); Triglycerides 41 mg/dL (0-150)
[2022-09-15 19:30] LABS: Vitamin D 25 Hydroxy 61 ng/mL (30-100)
[2022-09-16 03:53] LABS: Zinc 72 mcg/dL (60-130)
[2022-09-17 07:32] LABS: Vitamin A 41 mcg/dL (38-98)
== END 2022-09-12 07:41 | disposition home or self-care (01) ==
LOC: CHSIMG 07:41
PROVIDERS: PCP Internal Medicine; Visit Provider Internal Medicine
DX: R91.1 Solitary pulmonary nodule (principal); I10 Essential (primary) hypertension; R73.01 Impaired fasting glucose; Z98.84 Bariatric surgery status; E78.5 Hyperlipidemia, unspecified; N39.0 Urinary tract infection, site not specified; E78.2 Mixed hyperlipidemia
CPT/HCPCS: 36415; 71250; 80053; 80061; 81003; 82043; 82306; 82550; 82728; 83036; 83540; 84439; 84443; 84481; 84590; 84630; 85025

== ENCOUNTER 2023-03-28 08:44 | Outpatient (CLI) | payer OTHER, SELFPAY ==
[2023-03-28 09:04] LABS: Basophils Absolute Auto 0.05 K/mm3 (0.00-0.10); Basophils Percent Auto 0.8 % (0.0-1.0); Eosinophils Absolute Auto 0.11 K/mm3 (0.02-0.50); Eosinophils Percent Auto 1.8 % (1.0-6.0); Hematocrit 45.7 % (40.0-54.0); Hemoglobin 15.1 g/dL (14.0-18.0); Immature Granulocyte Absolute 0.01 K/mm3 (0.00-0.00); Immature Granulocyte Percent A 0.2 % (0.0-0.0); Lymphocytes Absolute Auto 1.81 K/mm3 (1.10-4.50); Lymphocytes Percent Auto 30.3 % (18.0-42.0); Mean Corpuscular Hemoglobin 31.6 pg (27.0-31.0); Mean Corpuscular Volume 95.6 fL (78.0-102.0); Mean Platelet Volume 8.9 fl (8.7-11.0); Monocytes Absolute Auto 0.49 K/mm3 (0.10-0.90); Monocytes Percent Auto 8.2 % (2.0-11.0); Neutrophils Absolute Auto 3.5 K/mm3 (1.7-7.2); Neutrophils Percent Auto 58.7 % (50.0-70.0); Platelet Count Result 227 K/mm3 (150-420); Red Blood Count 4.78 M/mm3 (4.70-6.10); Red Cell Distribution Width 13.3 % (11.6-14.4)
[2023-03-28 09:05] LABS: Appearance Urine Clear (Clear); Bilirubin Urine Negative (Negative); Blood Urine Negative (Negative); Color Urine Light Yellow (Yellow); Glucose Urine UA Negative (Negative); Ketones Urine Negative (Negative); Leukocyte Esterase Ur Negative (Negative); Nitrate Urine Negative (Negative); Protein Urine Negative (Negative); Urobilinogen Urine 0.2 mg/dL (0.2-1.0); pH Urine 6.5 (5.0-8.0)
[2023-03-28 09:06] LABS: Add Urine Microscopic? NO
[2023-03-28 09:13] LABS: Creatinine Urine 105.82 mg/dL (40-278); MALB Creatinine Ratio 29.2 mg/g (0-30)
[2023-03-28 10:15] LABS: Alanine Aminotransferase 35 U/L (16-63); Albumin Level 3.9 g/dL (3.4-5.0); Alkaline Phosphatase 83 U/L (46-116); Anion Gap 7 mmol/L (8-16); Aspartate Amino Transferase 26 U/L (15-37); Bilirubin,Total 0.9 mg/dL (0.00-1.00); Blood Urea Nitrogen 20 mg/dL (7-18); Calcium 9.5 mg/dL (8.5-10.1); Carbon Dioxide 31 mmol/L (21-32); Chloride 104 mmol/L (98-108); Cholesterol 137 mg/dL (0-200); Creatine Kinase 104 U/L (39-308); Estimated Glomerular Filt Rate > 60; Free T3 2.75 pg/mL (2.18-3.98); Free T4 Free Thyroxine 1.07 ng/dL (0.76-1.46); Glucose 95 mg/dL (70-99); HDL Direct 71 mg/dL (40-60); LDL Cholesterol Calculated 60 mg/dL (<130); Osmolality Calculated 296 mOsm/kg (285-295); Potassium 4.6 mmol/L (3.5-5.1); Prostate Specific Antigen 1.2 ng/mL (< OR = 4.0); Sodium 142 mmol/L (136-145); Thyroid Stimulating Hormone 1.08 uIU/mL (0.36-3.74); Total Protein 7.1 g/dL (6.4-8.2); Triglycerides 30 mg/dL (0-150); Vitamin B12 1330 pg/mL (193-986)
== END 2023-03-28 08:45 | disposition home or self-care (01) ==
LOC: CHSLAB 08:47
PROVIDERS: PCP Internal Medicine; Visit Provider Internal Medicine
DX: K70.0 Alcoholic fatty liver (principal); I10 Essential (primary) hypertension; E78.2 Mixed hyperlipidemia; G62.9 Polyneuropathy, unspecified; R73.01 Impaired fasting glucose
CPT/HCPCS: 36415; 80053; 80061; 81003; 82043; 82550; 82607; 84153; 84439; 84443; 84481; 85025; G0103

== ENCOUNTER 2023-10-03 08:24 | Outpatient (CLI) | payer OTHER, SELFPAY ==
[2023-10-03 08:42] LABS: Appearance Urine Clear (Clear); Basophils Absolute Auto 0.05 K/mm3 (0.00-0.10); Basophils Percent Auto 0.7 % (0.0-1.0); Bilirubin Urine Negative (Negative); Blood Urine Negative (Negative); Color Urine Light Yellow (Yellow); Eosinophils Absolute Auto 0.17 K/mm3 (0.02-0.50); Eosinophils Percent Auto 2.4 % (1.0-6.0); Glucose Urine UA Negative (Negative); Hematocrit 41.6 % (40.0-54.0); Hemoglobin 13.8 g/dL (14.0-18.0); Immature Granulocyte Absolute 0.02 K/mm3 (0.00-0.00); Immature Granulocyte Percent A 0.3 % (0.0-0.0); Ketones Urine Negative (Negative); Leukocyte Esterase Ur Negative LEU/UL (Negative); Lymphocytes Absolute Auto 1.95 K/mm3 (1.10-4.50); Mean Corpuscular HGB Conc 33.2 g/dL (32.0-36.0); Mean Corpuscular Hemoglobin 31.8 pg (27.0-31.0); Mean Corpuscular Volume 95.9 fL (78.0-102.0); Mean Platelet Volume 8.7 fl (8.7-11.0); Monocytes Absolute Auto 0.58 K/mm3 (0.10-0.90); Neutrophils Absolute Auto 4.4 K/mm3 (1.7-7.2); Neutrophils Percent Auto 61.6 % (50.0-70.0); Nitrate Urine Negative (Negative); Platelet Count Result 209 K/mm3 (150-420); Protein Urine Negative (Negative); Red Blood Count 4.34 M/mm3 (4.70-6.10); Red Cell Distribution Width 13.1 % (11.6-14.4); Urobilinogen Urine 0.2 mg/dL (0.2-1.0); White Blood Count 7.2 K/mm3 (4.8-10.8)
[2023-10-03 08:47] LABS: Add Urine Microscopic? NO
[2023-10-03 08:50] LABS: Creatinine Urine 125.21 mg/dL (40-278); MALB Creatinine Ratio 15.7 mg/g (0-30); Microalbumin Urine Random 19.7 mg/L
[2023-10-03 09:00] LABS: Hemoglobin A1C 4.8 % (<5.7)
[2023-10-03 09:31] LABS: Alanine Aminotransferase 34 U/L (16-63); Albumin Level 3.8 g/dL (3.4-5.0); Alkaline Phosphatase 72 U/L (46-116); Anion Gap 3 mmol/L (8-16); Aspartate Amino Transferase 22 U/L (15-37); Bilirubin,Total 0.8 mg/dL (0.00-1.00); Blood Urea Nitrogen 19 mg/dL (7-18); Calcium 9.2 mg/dL (8.5-10.1); Carbon Dioxide 33 mmol/L (21-32); Chloride 103 mmol/L (98-108); Cholesterol 137 mg/dL (0-200); Creatine Kinase 89 U/L (39-308); Estimated Glomerular Filt Rate > 60; Glucose 92 mg/dL (70-99); HDL Direct 73 mg/dL (40-60); LDL Cholesterol Calculated 58 mg/dL (<130); Osmolality Calculated 290 mOsm/kg (285-295); Potassium 4.5 mmol/L (3.5-5.1); Sodium 139 mmol/L (136-145); Total Protein 6.9 g/dL (6.4-8.2); Triglycerides 32 mg/dL (0-150); Vitamin B12 1276 pg/mL (193-986)
== END 2023-10-03 08:25 | disposition home or self-care (01) ==
PROVIDERS: PCP Internal Medicine; Visit Provider Internal Medicine
DX: N39.0 Urinary tract infection, site not specified (principal); I10 Essential (primary) hypertension; R73.01 Impaired fasting glucose; E78.5 Hyperlipidemia, unspecified; D51.9 Vitamin B12 deficiency anemia, unspecified
CPT/HCPCS: 36415; 80053; 80061; 81003; 82043; 82550; 82607; 83036; 85025

== ENCOUNTER 2023-12-01 07:14 | Outpatient (CLI) | payer OTHER, SELFPAY ==
--- NOTE | ~2023-12-01 | CT_ITS ---
CT Scan of the Chest without Contrast: Clinical Indication: Lung cancer screening, personal history of nicotine dependence Technique: Contiguous sections were acquired throughout the chest without intravenous contrast. Dose reduction technique was used on this scan by utilizing automated exposure control and iterative recon struction technique. The dose-length product (DLP) was 125.43 mGy-cm. COMPARISON: 09/12/2022 Findings: There is no evidence of any significant mediastinal, hilar or axillary lymphadenopathy. The mediastin al soft tissues appear normal. There is no evidence of pleural or pericardial effusion. Stable 4 mm left lower lobe pulmonary nodule (axial image 91). Several additional scattered 2-3 mm pu lmonary nodules are present. There is moderate emphysema. Images through the upper abdomen reveal no abnormalities. Impression: Lung RADS 2: Benign appearance. 12 month follow-up screening CT advised. Reviewed, dictated and finalized at [facility]. S MERCHANDISING SPECIALIST Impression: Lung RADS 2: Benign appearance. 12 month follow-up screening CT advised.
== END 2023-12-01 07:15 | disposition home or self-care (01) ==
LOC: CHSIMG 07:16
PROVIDERS: PCP Internal Medicine; Visit Provider Internal Medicine
DX: Z12.2 Encounter for screening for malignant neoplasm of respiratory organs (principal); Z87.891 Personal history of nicotine dependence
CPT/HCPCS: 71271

== ENCOUNTER 2024-09-07 16:33 | Outpatient (CLI) | payer OTHER, SELFPAY ==
--- NOTE | ~2024-09-07 | XR_ITS ---
EXAMINATION: XR wrist LT min 3V DATE: 09/07/2024 18:07 INDICATION: Left thumb injury. TECHNIQUE: 3 views of left wrist were obtained. COMPARISON: None. FINDINGS: Alignment is normal. No acute fracture. There is ununited ossification of the ulnar styloid . There is mild osteoarthritis of triscaphe joint and first carpometacarpal joint. IMPRESSION: 1. Mild polyarticular osteoarthritis. Reviewed, dictated and finalized at location A. OR SOFTWARE TESTER
--- NOTE | ~2024-09-07 | XR_ITS ---
EXAMINATION: XR hand LT min 3V DATE: 09/07/2024 18:07 INDICATION: Left thumb injury. TECHNIQUE: 3 views of left hand were obtained. COMPARISON: None. FINDINGS: Alignment is normal. No acute fracture. Ulnar styloid is ununited. There is mild osteoarthr itis of first carpometacarpal joint and first interphalangeal joint. IMPRESSION: 1. Mild polyarticular osteoarthritis. Reviewed, dictated and finalized at location A. NESS WRITER
== END 2024-09-07 16:34 | disposition home or self-care (01) ==
LOC: CHSIMG 16:37
PROVIDERS: PCP Internal Medicine; Visit Provider Internal Medicine
DX: S69.92XA Unspecified injury of left wrist, hand and finger(s), initial encounter (principal); M19.042 Primary osteoarthritis, left hand
CPT/HCPCS: 73110; 73130

== ENCOUNTER 2025-06-05 07:34 | Outpatient (NON) | payer OTHER, SELFPAY ==
--- NOTE | 2025-06-05 | S_PTH ---
PATIENT: Huber Rollins LOC: [facility]#:[id number] AGE/SX: 60/M ROOM: RE06/05/[address]: Kite Soni DO : 1965 BED: DIS: 06/05/2025 SPEC #: [id number] RECD: 06/06/25 08:22 STATUS: HARRY REQ #: [id number] SAVANAH: 06/05/25 00:[address]: Kiet Soni DEPT: [facility] Surgical RECD BY: Diya Fam ENTERED: 06/06/25 08:22 SP TYPE: Surgical OTHR DR: Tre Reinoso MD Tissues: A - Rectal Polyp Procedures: Hematoxylin and Eosin Stain Gross and Microscopic Level 4
--- OUTSIDE RECORDS SUMMARY | 2025-06-06 07:44 | XMS_ITS | Clinical Summary ---
Author Organization [facility] Address [address] [place] [address] Care Team Providers Care Supply Chain Vice President Name Role Phone Unavailable Primary Care Provider Unavailabl e Social History Tobacco Use Types Packs/Day Years Used Date Smoking Tobacco: Never Assessed Sex and Gender Information Value Date Recorded Sex Assigned at Not on file Legal Sex Male 5:01 PM CDT Gender Identity Not on file Sexual Orientation Not on file Plan of Treatment Health Maintenance Due Date Last Done Comments Colorectal Cancer Screening Colonoscopy (10 Years) 1967 Annual Physical 1970 Hepatitis C 1985 DTaP, Tdap and Td Vaccines ( 1 - Tdap) 1986 Hepatitis B Vaccines (1 of 3 - 19+ 3-dose series) 1986 Pneumococcal Vaccine: 50+ Ye ars (1 of 1 - PCV) 2017 Zoster Vaccines (1 of 2) 2017 COVID-19 Vaccine ( - 2023-2 5 season) 2024 Meningococcal B Vaccine Aged Out No l onger eligible based on patient's age to complete this topic Meningococcal Vaccine Aged Out No ricky mandy eligible based on patient's age to complete this topic RSV Immunizations Under 20 Months Aged Out No longer eligible based on patient's age to complete this topic Insurance [facility]
--- OUTSIDE RECORDS SUMMARY | 2025-06-06 07:44 | XMS_ITS | Clinical Summary ---
Author Organization [facility] Address [address] [place] [address] Care Team Providers Care Rod Tape Operator Name Role Phone Tre Reinoso MD Primary [...] Active UNABLE TO FINDIndications: supplement 1 each continuous mining machine operator before breakfast Vitamin D With k supplement Active Multivits/Iron Fum/FA/D3/Lycop (MULTI FOR HIM ORAL)Indications :supplement Take by mouth continuous mining machine operator before breakfast Active sildenafiL (VIAGRA) 100 mg [...] (02/08/2020): Added automatically from request for surgery [id number] Surgical History Surgery Date Site/Laterality Comments SLEEVE [...] on file Legal Sex Male 7:31 PM FAMILY PRESERVATION WORKER Gender Identity Not on file Sexual Orientation Straight 02/08/2020 8: 35 AM CDT Obstetrics History Last Filed Vital Signs Vital Sign Reading Time Taken Comments Blood Pressure 144/77 11/04/2024 3:05 PM FAMILY PRESERVATION WORKER Pulse 62 11/04/2024 3:05 PM FAMILY PRESERVATION WORKER Temperature 36.8 C (98.2 F) 03/28/2020 2:23 PM CDT Respiratory Rate 12 03/28/2020 2:23 PM CDT Oxygen Saturation 98% 11/04/2024 3:05 PM FAMILY PRESERVATION WORKER Inhaled Oxygen Concentration - - Weight 93 kg (205 lb) 11/04/2024 3:05 PM FAMILY PRESERVATION WORKER Height 190.5 cm (6' 3) 11/04/2024 3:05 PM FAMILY PRESERVATION WORKER Body Mass Index 25.62 11/04/2024 3:05 PM FAMILY PRESERVATION WORKER Plan of Treatment Health Maintenance Due Date [...] 9, 07/09/2018, 07/08/2017, Additional history exists Insurance [facility] HMO/PPO Address: [facility] [address] [place] [address] ANTHEM ACCESS BLUE ACCESS OOS Advance Directives For more information, please contact: [phone] * Full Code (Latest Code Status on File) Date Activated Date Inactivated Comments 03/27/2020 4:38 PM 03/28/2020 9:35 PM Care Teams Rod Tape Operator Relationship Specialty Start Date End Date Tre Reinoso MD [address] [place] [address] PCP - General Internal Medicine 02/02/20
--- OUTSIDE RECORDS SUMMARY | 2025-06-06 07:44 | XMS_ITS | Clinical Summary ---
[facility] Address [address] [address] [place] [address] Phone Care Team Providers Care Project Engineer Name Role Phone Tre Reinoso MD Primary [...] (#1) 2025 Medical Devices Implanted Type Area Medical Technologist Device Identifier Shelf Expiration Date Model / Serial / Lot Seamguard Bio 60 [id number] - [id number] Implanted:Qty: 4 on 03/06/2014 by Farhan Chavez MD at [facility] N/A: Abdomen [employer] 10/18/2016 [id number] / / [id number] Seamguard Bio 60 [id number] - [id number] Implanted:Qty: 1 on 03/06/2014 by Farhan Chavez MD at [facility] N/A: Abdomen [employer] 09/17/2016 [id number] / / [id number] Procedures Procedure Name Priority Date/Time Associated Diagnosis Comments HEMOGLOBIN A1C Routine 02/27/2014 11:02 AM CDT Morbid obesity (CMS/HCC) from Last 3 Months or Most Recently Relevant to Health Maintenance Results * HEMOGLOBIN A1C (02/27/2014 11:02 AM CDT) HEMOGLOBIN A1C 5.9 4.0 - 6.0 % 02/27/2014 1:32 PM CDT [facility] EST. AVG GLUCOSE, A1C 123 mg/dL 02/27/2014 1:32 PM CDT [facility] Blood specimen (specimen) Venipuncture - Lab Collect / Unknown 02/27/2014 11:02 AM CDT 02/27/2014 1:12 PM CDT us Farhan Chavez MD CHEMISTRY ORDERABLES Final Resul t [facility] CLIA # [id number] [facility] [address] [place] [address] from Last 3 Months or Most Recently Relevant to Health Maintenance Insurance Advance Directives For more information, please contact: [phone] * Full Code (Latest Code Status on File) Date Activated Date Inactivated Comments 03/06/2014 8:00 AM 03/07/2014 7:20 PM * Full Code Date Activated Date Inactivated Comments 03/06/2014 5:47 AM 03/06/2014 8:00 AM * Full Code Date Activated Date Inactivated Comments 01/27/2014 6:29 AM 01/27/2014 4:00 PM * Full Code Date Activated Date Inactivated Comments 01/27/2014 5:55 AM 01/27/2014 6:29 AM Care Teams Project Engineer Relationship Specialty Start Date End Date Tre Reinoso MD [address] [place] [phone] PCP - General Internal Medicine 01/25/14
== END 2025-06-05 07:35 | disposition home or self-care (01) ==
PROVIDERS: PCP Internal Medicine; Visit Provider Surgery
DX: Z12.11 Encounter for screening for malignant neoplasm of colon (principal)
CPT/HCPCS: 88305

== ENCOUNTER 2025-06-05 09:28 | Day surgery (SDC) | payer OTHER, SELFPAY ==
[2025-05-01 14:45] VITALS: BMI 24.8
[2025-05-19 08:33] VITALS: BMI 24.8
[2025-06-05 10:20] VITALS: BMI 24.1
--- OUTSIDE RECORDS SUMMARY | 2025-06-05 10:21 | XMS_ITS | Clinical Summary ---
Author Organization [facility] Address [address] [place] [address] Care Team Providers Care Customer Order Clerk Name Role Phone Tre Reinoso MD Primary Care Provider Allergies No known active allergies Medications hydroCHLOROthiaz marlin (HYDRODIURIL) 12.5 mg tabletIndication s:hypertension Take 12.5 mg by mouth every morning 0 Active Combivent Respimat 20-100 mcg/actuation inhalerIndicatio ns:copd Inhale 1 puff 4 (four) times a day 0 Active losartan (COZAAR) 100 mg tabletIndication s:hypertension Take 100 mg by mouth every morning 0 Active spironolactone (ALDACTONE) 50 mg tabletIndication s:hypertension Take 50 mg by mouth every morning 0 Active tamsulosin (FLOMAX) 0.4 mg extended release capsuleIndicatio ns:benign prostatic hyperplasia with lower urinary tract sx Take 0.4 mg by mouth every morning 0 Active varenicline (CHANTIX) 1 mg tabletIndication s:Smoking Cessation Take 1 mg by mouth 2 (two) times a day Take with full glass of water. Active budesonide-formo teroL (SYMBICORT) 160-4.5 mcg/actuation inhalerIndicatio ns:copd Inhale 2 puffs 2 (two) times a day Rinse mouth with water after use. Do not swallow. Active UNABLE TO FINDIndications: supplement 1 each early learning teacher before breakfast Vitamin D With k supplement Active Multivits/Iron Fum/FA/D3/Lycop (MULTI FOR HIM ORAL)Indications :supplement Take by mouth early learning teacher before breakfast Active sildenafiL (VIAGRA) 100 mg tablet Take 100 mg by mouth daily as needed for erectile dysfunction Active docusate sodium (COLACE) 100 mg capsuleIndicatio ns:constipation Take 1 capsule (100 mg total) by mouth 2 (two) times a day 30 capsule 0 Active oxyCODONE (ROXICODONE) 5 mg immediate release tabletIndication s:Pain Take 1 tablet (5 mg total) by mouth every 6 (six) hours as needed for pain 12 tablet 0 Active acetaminophen (TYLENOL) 500 mg tablet Take 2 tablets (1,000 mg total) by mouth every 6 (six) hours as needed for pain 90 tablet 1 0 Active Active Problems Problem Noted Date Diagnosed Date Renal mass 02/08/2020 Overview (02/08/2020): Added automatically from request for surgery [id number] Surgical History Surgery Date Site/Laterality Comments SLEEVE GASTROPLASTY 03/06/2014 MYRINGOTOMY TONSILLECTOMY Medical History Medical History Date Comments COPD (chronic obstructive pulmonary disease) Pneumonia Pneumothorax 1990s Family History Medical History Relation Name Comments Anesthesia problems Neg Hx Bleeding Disorder Neg Hx Clotting disorder Neg Hx Heart attack Neg Hx Stroke Neg Hx Sudden Cardiac Neg Hx Social History Tobacco Use Types Packs/Day Years Used Date Smoking Tobacco: Every Day Cigarettes 0.1 45.6 Started: 1979 Smokeless Tobacco: Never Alcohol Use Standard Drinks/Week Comments Not Currently 0 (1 standard drink = 0.6 oz pur e alcohol) sober for 2 1/2 years Sex and Gender Information Value Date Recorded Sex Assigned at Not on file Legal Sex Male 7:31 PM MELTER HELPER Gender Identity Not on file Sexual Orientation Straight 02/08/2020 8: 35 AM CDT Obstetrics History Last Filed Vital Signs Vital Sign Reading Time Taken Comments Blood Pressure 144/77 11/04/2024 3:05 PM MELTER HELPER Pulse 62 11/04/2024 3:05 PM MELTER HELPER Temperature 36.8 C (98.2 F) 03/28/2020 2:23 PM CDT Respiratory Rate 12 03/28/2020 2:23 PM CDT Oxygen Saturation 98% 11/04/2024 3:05 PM MELTER HELPER Inhaled Oxygen Concentration - - Weight 93 kg (205 lb) 11/04/2024 3:05 PM MELTER HELPER Height 190.5 cm (6' 3) 11/04/2024 3:05 PM MELTER HELPER Body Mass Index 25.62 11/04/2024 3:05 PM MELTER HELPER Plan of Treatment Health Maintenance Due Date Last Done Comments Colon Cancer Screening-Colonoscopy 1967 Depression Screening 1967 Hepatitis C Screening 1967 Prostate Cancer Screening-PSA 1967 Hepatitis B Screening 1985 Regular Well Visit/Exam 18-64 1985 Zoster Vaccine (1 of 2) 2017 Pneumococcal vaccine <65 (3 of 3 - PCV20 or PCV21) 07/09/2023 07/09/2018, 09/07/2013 DTaP/Tdap/Td Vaccine (2 - Td or Tdap) 09/07/2023 09/07/2013 Influenza Vaccine (#1) 2025 9, 07/09/2018, 07/08/2017, Additional history exists Insurance [facility] ANTHEM ACCESS BLUE ACCESS OOS Advance Directives For more information, please contact: [phone] * Full Code (Latest Code Status on File) Date Activated Date Inactivated Comments 03/27/2020 4:38 PM 03/28/2020 9:35 PM Care Teams Customer Order Clerk Relationship Specialty Start Date End Date Tre Reinoso MD [address] [place] [address] PCP - General Internal Medicine 02/02/20
--- OUTSIDE RECORDS SUMMARY | 2025-06-05 10:21 | XMS_ITS | Clinical Summary ---
[facility] Address [address] [address] [place] [phone] Phone Care Team Providers Care Health Sciences Dean Name Role Phone Tre Reinoso MD Primary Care Provider + Allergies No known active allergies Medications NIFEdipine SR 24 hour (PROCARDIA-XL) 90 mg tablet Take 120 mg by mouth daily. Active atenolol (TENORMIN) 25 mg tablet Take 25 mg by mouth daily. Active hydrochlorothiaz marlin 25 mg Oral tablet Take 25 mg by mouth daily. Active ondansetron (ZOFRAN ODT) 4 mg Tablet, Rapid Dissolve Place 1 Tab under tongue every 6 hours as needed for Nausea/Emes is. 10 Tab 0 03/07/2014 Active pantoprazole (PROTONIX) [address] for susp in Packet Take 40 mg by mouth daily. 40 Bottle 0 03/07/2014 Active Active Problems Problem Noted Date Diagnosed Date Morbid obesity 03/06/2014 Hypertension 03/06/2014 Abnormal liver enzymes 03/06/2014 Peptic 03/06/2014 Peptic ulcer disease 03/06/2014 GERD (gastroesophageal reflux disease) 4 Family History Medical History Relation Name Comments Respiratory Disease Father Heart Disease Mother Relation Name Status Comments Father Mother Alive Social History Tobacco Use Types Packs/Day Years Used Date Smoking Tobacco: Former Cigarettes Q uit: 12/19/2013 Alcohol Use Standard Drinks/Week Comments Yes 1.7 (1 standard drink = 0.6 oz p ure alcohol) 10-15/week Sex and Gender Information Value Date Recorded Sex Assigned at Not on file Legal Sex Male 5:11 PM CDT Gender Identity Not on file Sexual Orientation Not on file Occupation Industry Job Start Date Job End Date Not on file Not on file Not on file Not on file Last Filed Vital Signs Vital Sign Reading Time Taken Comments Blood Pressure 158/79 03/07/2014 8:00 AM CDT Pulse 60 03/07/2014 8:00 AM CDT Temperature 37 C (98.6 F) 03/07/2014 8:00 AM CDT Respiratory Rate 20 03/07/2014 8:00 AM CDT Oxygen Saturation 96% 03/07/2014 8:00 AM CDT Inhaled Oxygen Concentration - - Weight 179 kg (394 lb 9.6 oz) 03/07/2014 6:00 AM CDT Height 193 cm (6' 4) 03/06/2014 6:05 AM CDT Body Mass Index 48.03 03/06/2014 6:05 AM CDT Plan of Treatment Health Maintenance Due Date Last Done Comments DTAP/TDAP/TD VACCINES (1 - Tdap) 1986 HEPATITIS B VACCINES (1 of 3 - 19+ 3-dose series) 05/1986 COLORECTAL SCREENING 2012 Colorectal Cancer Screening 2012 FIT-DNA Q 3 years 2012 FIT/FOBT Q 1 year 2012 Flex Sig/CT Colonography Q 5 years 2012 Pre-Diabetes and Diabetes Screening 02/27/201702/27 ZOSTER VACCINE (1 of 2) 2017 INFLUENZA VACCINE (#1) 2025 Medical Devices Implanted Type Area Lidar Analyst Device Identifier Shelf Expiration Date Model / Serial / Lot Seamguard Bio 60 [id number] - [id number] Implanted:Qty: 4 on 03/06/2014 by Farhan Chavez MD at [facility] N/A: Abdomen [employer] 10/18/2016 [id number] / / [id number] Seamguard Bio 60 [id number] - [id number] Implanted:Qty: 1 on 03/06/2014 by Farhan Chavez MD at [facility] N/A: Abdomen [employer] 09/17/2016 [id number] / / [id number] Procedures Procedure Name Priority Date/Time Associated Diagnosis Comments HEMOGLOBIN A1C Routine 02/27/2014 11:02 AM CDT Morbid obesity (CMS/HCC) from Last 3 Months or Most Recently Relevant to Health Maintenance Results * HEMOGLOBIN A1C (02/27/2014 11:02 AM CDT) HEMOGLOBIN A1C 5.9 4.0 - 6.0 % 02/27/2014 1:32 PM CDT [facility] EST. AVG GLUCOSE, A1C 123 mg/dL 02/27/2014 1:32 PM CDT [facility] Blood specimen (specimen) Venipuncture - Lab Collect / Unknown 02/27/2014 11:02 AM CDT 02/27/2014 1:12 PM CDT us Farhan Chavez MD CHEMISTRY ORDERABLES Final Resul t [facility] CLIA # [id number] [facility] [address] [place] [address] from Last 3 Months or Most Recently Relevant to Health Maintenance Insurance Advance Directives For more information, please contact: [phone] * Full Code (Latest Code Status on File) Date Activated Date Inactivated Comments 03/06/2014 8:00 AM 03/07/2014 7:20 PM * Full Code Date Activated Date Inactivated Comments 03/06/2014 5:47 AM 03/06/2014 8:00 AM * Full Code Date Activated Date Inactivated Comments 01/27/2014 6:29 AM 01/27/2014 4:00 PM * Full Code Date Activated Date Inactivated Comments 01/27/2014 5:55 AM 01/27/2014 6:29 AM Care Teams Health Sciences Dean Relationship Specialty Start Date End Date Tre Reinoso MD [address] [place] [phone] PCP - General Internal Medicine 01/25/14
[2025-06-05 10:22] VITALS: BP 129/73; PULSE 50; RESP 18; TEMP 36.8; O2SAT 100
[2025-06-05] MEDS: LACTATED RINGERS 1,000 ML 150 ML IV CONT ×2 (10:34→11:34)
--- NOTE | 2025-06-05 10:40 | PM.IMHP ---
H&P: HPI History of Present Illness Date/Time: 06/05/25 10:40 Chief Complaint: history of colon polyps Narrative: this is a 60-year-old man who presents for colonoscopy. He last had a colonoscopy 3 years ago and polyps were removed at that time. He denies any hematochezia or melena. He denies any family history of colon cancer. Review of Systems Review of Systems: All systems reviewed & are unremarkable except as noted in HPI and below Constitutional: Constitutional: Denies chills, Denies fever(s), Denies headache(s) and Denies weight loss Eyes: Eyes: Denies change in vision ENT: Denies dizziness, Denies headache(s), Denies neck mass and Denies throat swelling Cardiovascular: Cardiovascular: Denies chest pain, Denies lightheadedness and Denies dyspnea Respiratory: Respiratory: Denies cough, Denies dyspnea and Denies wheezing Gastrointestinal: Gastrointestinal: Denies abdominal pain, Denies change in bowel habits, Denies nausea and Denies vomiting Genitourinary: Genitourinary: Denies hematuria and Denies dysuria Musculoskeletal: Musculoskeletal: Reports as per HPI Integumentary/Breasts: Skin/Breast: Reports as per HPI Neurologic: Denies dizziness and Denies headache(s) Allergic/Immunologic: Allergic/Immunologic: Denies throat swelling and Denies wheezing [facility] Past Medical History Medical History (Updated 06/05/25 @ 10:41 by Kiet Soni DO) Bradycardia Hypertension COPD (chronic obstructive pulmonary disease) Social History Social History (System 06/20/21 @ 09:28 by Johny Liang) Smoking packs per day: 1 Smoking cigarettes per day: 20.0 Years smoked: 30 Smoking pack-years: 30.00 Smoking status: Current every day smoker Tobacco type: cigarettes Substance use type: marijuana Other substance usage details: occasional Living arrangements: with family Meds Home Medications and Allergies Home Medications ?Medication ?Instructions ?Recorded ?Confirmed ?Type acetaminophen 500 mg tablet 500 mg PO Q4-6H PRN Pain 05/23/20 06/05/25 History budesonide-formoterol HFA 160 2 puff inhalation Q12H 05/23/20 06/05/25 History mcg-4.5 mcg/actuation aerosol inhaler (Symbicort) ipratropium 20 mcg-albuterol 100 1 puff inhalation QID PRN 05/23/20 06/05/25 History mcg/actuation mist for inhalation shortness of breath or wheezing (Combivent Respimat) losartan 100 mg tablet 100 mg PO DAILY 05/23/20 06/05/25 History spironolactone 50 mg tablet 50 mg PO DAILY 05/23/20 06/05/25 History tamsulosin 0.4 mg capsule 0.4 mg PO DAILY PRN urinary 05/23/20 06/05/25 History retention sildenafil (pulm.hypertension) 20 100 mg PO DIRECTED 05/19/25 06/05/25 History mg tablet Allergies Allergy/AdvReac Type Severity Reaction Status Date / Time No Known Allergies Allergy Verified 06/05/25 10:08 Vital Signs Vital Signs - 24 hr 06/05/25 10:22 Temperature 98.2 F Pulse Rate 50 L Respiratory Rate 18 Blood Pressure 129/73 Pulse Oximetry 100 Oxygen Delivery Room Air Exam Const: General: no acute distress and alert Orientation/consciousness: patient oriented x3 HENMT: Head: normocephalic and atraumatic Ears: hearing grossly normal bilaterally Face/Nose/Sinus: Normal nares present Mouth: Yes Normal oral and palatal mucosa present Eyes: Periorbital: periorbital findings normal Sclera: sclerae normal EOM: EOMs intact bilaterally Neck: Neck: normal visual inspection, no lymphadenopathy and trachea midline Chest: Chest palpation & inspection: normal inspection of the chest Resp: Effort & Inspection: normal respiratory effort Auscultation: clear to auscultation bilaterally Cardio: Jugular venous distension: no JVD Rate: regular rate Rhythm: regular rhythm Heart sounds: S1 normal heart sound present and S2 normal heart sound present Peripheral pulses: Peripheral pulses 2+ throughout GI: Inspection: normal to inspection GI Palp: Yes Soft to palpation, No Tenderness to palpation present (GI), No Guarding due to palpation present (GI) and No Rebound tenderness present Percussion: Yes normal to percussion Auscultation: normal bowel sounds : General: Yes no CVA tenderness Back/Spine/Pelvis: Back: no CVA tenderness Neuro: General: patient oriented x3, no focal motor deficits and CN's II-XI intact bilaterally Cognition (Neuro): normal cognition Speech: normal speech Motor exam (neuro): 5/5 motor strength present throughout Extrem: General: capillary refill normal and no clubbing, cyanosis or edema Assessment and Plan Assessment and plan (1) Hx of colonic polyps: Code(s): Z86.0100 - Personal history of colon polyps, unspecified Status: Acute Assessment and Plan: I have recommended colonoscopy. I have discussed the procedure, risks, benefits, and alternatives. Questions were answered. Patient is agreeable to proceed.
--- NOTE | 2025-06-05 10:46 | P.PNAN_ITS ---
Anes - Initial Pre Proc Eval Procedure: Operation Date: 06/05/25 10:30 Proposed Procedures p Screening Colonoscopy - Kiet Soni DO Date/Time: 06/05/25 10:46 Surgeon: Kiet Soni DO Pre Op Diagnosis: History of Polyps Patient Data Age: 60 Gender: M Height: 1.93 m Weight: 90 kg Last Vital Signs Temp 98.2 F 06/05/25 10:22 Pulse 50 L 06/05/25 10:22 Resp 18 06/05/25 10:22 BP 129/73 06/05/25 10:22 Pulse Ox 100 06/05/25 10:22 O2 Del Method Room Air 06/05/25 10:22 Allergies Allergy/AdvReac Type Severity Reaction Status Date / Time No Known Allergies Allergy Verified 06/05/25 10:08 Home Medications ?Medication ?Instructions ?Recorded ?Confirmed ?Type acetaminophen 500 mg tablet 500 mg PO Q4-6H PRN Pain 05/23/20 06/05/25 History budesonide-formoterol HFA 160 2 puff inhalation Q12H 05/23/20 06/05/25 History mcg-4.5 mcg/actuation aerosol inhaler (Symbicort) ipratropium 20 mcg-albuterol 100 1 puff inhalation QID PRN 05/23/20 06/05/25 History mcg/actuation mist for inhalation shortness of breath or wheezing (Combivent Respimat) losartan 100 mg tablet 100 mg PO DAILY 05/23/20 06/05/25 History spironolactone 50 mg tablet 50 mg PO DAILY 05/23/20 06/05/25 History tamsulosin 0.4 mg capsule 0.4 mg PO DAILY PRN urinary 05/23/20 06/05/25 History retention sildenafil (pulm.hypertension) 20 100 mg PO DIRECTED 05/19/25 06/05/25 History mg tablet Patient hx anesthesia problems: none Family hx anesthesia problems: none Results Review: All pre-operative results and documents have been reviewed as part of the pre- operative evaluation. [facility] Past Medical History Medical History (Updated 06/05/25 @ 10:41 by Kiet Soni DO) Bradycardia Hypertension COPD (chronic obstructive pulmonary disease) Social History Social History (System 06/20/21 @ 09:28 by Johny Liang) Smoking packs per day: 1 Smoking cigarettes per day: 20.0 Years smoked: 30 Smoking pack-years: 30.00 Smoking status: Current every day smoker Tobacco type: cigarettes Substance use type: marijuana Other substance usage details: occasional Living arrangements: with family Otilia Lucia Final PreProcedure Day of Procedure 06/05/25 10:46 Heart: regular rate and rhythm Lungs: clear to auscultation Airway: Mallampati scale class II Neurological: alert and oriented Last oral intake: >/= 8 hours ASA classification: II Anesthetic plan: proceed Anesthesia type and monitoring: monitored anesthesia care Results Review: All pre-operative results and documents have been reviewed as part of the pre- operative evaluation. Informed Consent: The patient's anesthetic plan and its attendant risks and benefits were discussed with the patient/family/POA. Questions were solicited and answers provided to the satisfaction of the patient/family/POA.
--- NOTE | 2025-06-05 10:49 | WPDANESPN ---
Anes - Prog Note Post-Op Date/Time: 06/05/25 10:49 Vital Signs: Last Vital Signs Temp 98.2 F 06/05/25 10:22 Pulse 50 L 06/05/25 10:22 Resp 18 06/05/25 10:22 BP 129/73 06/05/25 10:22 Pulse Ox 100 06/05/25 10:22 O2 Del Method Room Air 06/05/25 10:22 Pain Score (VAS): no Patient Feedback: Patient satisfied with anesthetic care.
[2025-06-05 11:00] VITALS: BP 100/60; PULSE 64; RESP 15; O2SAT 100
[2025-06-05 11:10] VITALS: BP 113/71; PULSE 72; RESP 15; O2SAT 99
[2025-06-05 11:20] VITALS: BP 122/79; PULSE 69; RESP 15; O2SAT 98
== END 2025-06-05 11:43 | disposition home or self-care (01) ==
PROVIDERS: PCP Internal Medicine; Visit Provider Surgery
PROC: 0DJD8ZZ Inspection of Lower Intestinal Tract, Via Natural or Artificial Opening Endoscopic (ICD-10-PCS; CPT 45378; principal; 2025-06-05 10:30)
DX: Z12.11 Encounter for screening for malignant neoplasm of colon (principal); K62.1 Rectal polyp
CPT/HCPCS: 45380